=== PATIENT | female | born 1985 | race Caucasian/White ===

== ENCOUNTER 2017-05-23 17:59 | Emergency (ER) | payer SELFPAY ==
[~2017-05-23] VITALS: Ht 154.9 cm; Wt 54.9 kg
[2017-05-23 18:05] VITALS: BP 120/77
== END 2017-05-24 00:32 | disposition left against medical advice (07) ==
LOC: ER 18:01
DX: J02.0 Streptococcal pharyngitis (principal); Z53.21 Procedure and treatment not carried out due to patient leaving prior to being seen by health care provider

== ENCOUNTER 2017-05-26 16:54 | Emergency (ER) | payer SELFPAY ==
[~2017-05-26] VITALS: Ht 154.9 cm; Wt 54.9 kg
[2017-05-26 18:11] VITALS: BP 117/70
[2017-05-26] MEDS ORDERED: methylPREDNISolone SOD SUCC 125 MG/2 ML VL IM ONE (18:30)
[2017-05-26] MEDS ORDERED: cefTRIAXone SOD 1,000 MG VL IM ONE (18:45)
== END 2017-05-26 19:10 | disposition home or self-care (01) ==
LOC: ER 16:55
DX: R21 Rash and other nonspecific skin eruption (principal); F17.219 Nicotine dependence, cigarettes, with unspecified nicotine-induced disorders
CPT/HCPCS: 96372; 99284; J0696; J2930